=== PATIENT | male | born 1995 | race Caucasian/White ===

== ENCOUNTER 2017-08-31 08:49 | Emergency (ER) | payer SELFPAY ==
[~2017-08-31] VITALS: Ht 170.2 cm; Wt 58.1 kg
[2017-08-31 09:04] VITALS: BP 139/95
--- NOTE | 2017-08-31 09:12 | NUR ---
Patient transferred to bed 1 via wheelchair. RN evaluating patient at bedside.
--- NOTE | 2017-08-31 09:30 | NUR ---
PATIENT PRESENTS TO ED WITH C/O 3/4 inch horizontal lac over left eyelid s/p witnessed seizure at home----pt states he may have face planted onto the floor----1st episode of seizure--- left shoulder pain hx--- adhd, depression rx----zoloft . DENIES N/V/D; SKIN IS PINK/WARM/DRY; AAOX4 WITH EVEN AND STEADY GAIT; LUNGS CLEAR BL; HR EVEN AND REGULAR; PT DENIES ANY FEVER, CP, SOB, OR COUGH AT THIS TIME; PATIENT STATES PAIN OF 7/10 AT THIS TIME; VSS; PATIENT POSITIONED FOR COMFORT; HOB ELEVATED; BEDRAILS UP X2; BED DOWN. ER MD MADE AWARE OF PT STATUS.
--- NOTE | 2017-08-31 09:41 | NUR ---
glass technician/installer at bedside.
[2017-08-31 10:12] LABS: HEMATOCRIT 50.2 % (36-52); HEMOGLOBIN 16.6 g/dL (12.0-18.0); MEAN CORPUSCULAR HEMOGLOBIN 30 pg (27-31); MEAN CORPUSCULAR HGB CONC 33 g/dL (33-37); MEAN CORPUSCULAR VOLUME 92 fL (80-94); PLATELET COUNT (AUTO) 252 K/uL (140-450); RED BLOOD CELL COUNT(AUTO) 5.48 MIL/uL (4.20-6.10); RED CELL DISTRIBUTION WIDTH 12.9 % (11.6-13.7); WHITE BLOOD COUNT (AUTO) 10.4 K/uL (4.5-11.0)
[2017-08-31 10:26] LABS: CARBON DIOXIDE 25.6 mmol/L (21-32); POTASSIUM 4.6 mmol/L (3.5-5.1)
[2017-08-31 10:32] LABS: ALBUMIN 4.9 g/dL (3.4-5.0); PROTHROMBIN TIME 10.2 secs (10.8-13.4); TOTAL BILIRUBIN 0.8 mg/dL (0.0-1.0)
[2017-08-31 10:33] LABS: BASOPHILS % (MANUAL) 0 % (0-2); EOSINOPHILS % (MANUAL) 0 % (0-4); LYMPHOCYTES % (MANUAL) 11 % (20-46); MONOCYTES % (MANUAL) 7 % (5-12)
[2017-08-31] MEDS ORDERED: LIDOCAINE 1% 500 MG/50 ML VIAL INJ SCH (11:35)
[2017-08-31] MEDS ORDERED: BACITRACIN OINT 500 UNITS/GM PKT TP ONE (14:03)
[2017-08-31 14:16] VITALS: BP 125/80
--- NOTE | 2017-08-31 14:16 | NUR ---
Patient discharged with v/s stable. Written and verbal after care instructions given and explained. Patient verbalized understanding. Ambulatory with steady gait. All questions addressed prior to discharge. Advised to follow up with PMD.
== END 2017-08-31 14:16 | disposition home or self-care (01) ==
LOC: MED 08:49
DX: S01.112A Laceration without foreign body of left eyelid and periocular area, initial encounter (principal); S43.402A Unspecified sprain of left shoulder joint, initial encounter; S09.90XA Unspecified injury of head, initial encounter; I95.1 Orthostatic hypotension; F32.9 Major depressive disorder, single episode, unspecified; X58.XXXA Exposure to other specified factors, initial encounter; Y93.89 Activity, other specified; Y92.89 Other specified places as the place of occurrence of the external cause; Y99.8 Other external cause status
CPT/HCPCS: 12013; 36415; 70450; 71045; 72125; 73030; 80053; 84484; 85025; 85610; 90471; 90715; 93005; 99285; Q0092